=== PATIENT | female | born 1965 | race Caucasian/White ===

== ENCOUNTER 2022-09-24 06:44 | Day surgery (SDC) | payer BC ==
[~2022-09-24] VITALS: Ht 167.6 cm; Wt 88.5 kg
[~2022-09-24 06:44] MED LIST: ALBUTEROL SUL0.083 % IN; BENADRYL25 M1 OR; BUSPIRONE5 MG PO; CLARITIN10 MG OR; CYMBALTA30 MG OR; LIPITOR10 M1 PO; OMEPRAZOLE20 MG PO; OZEMPIC2 MG IJ; TRAZODONE50 MG PO
[2022-09-24 08:57] VITALS: BP 140/80
== END 2022-09-24 09:05 | disposition home or self-care (01) | DRG 951 ==
LOC: ENDO 06:44 → ORM 09:30
PROVIDERS: ATTEND Internal Medicine Gastroenterology
PROC: 0DBP8ZX Excision of Rectum, Via Natural or Artificial Opening Endoscopic, Diagnostic (ICD-10-PCS; principal; 2022-09-24)
PROC: 0DB28ZX Excision of Middle Esophagus, Via Natural or Artificial Opening Endoscopic, Diagnostic (ICD-10-PCS; 2022-09-24)
PROC: 0DB78ZX Excision of Stomach, Pylorus, Via Natural or Artificial Opening Endoscopic, Diagnostic (ICD-10-PCS; 2022-09-24)
DX: Z12.11 Encounter for screening for malignant neoplasm of colon (principal); K62.1 Rectal polyp; K57.30 Diverticulosis of large intestine without perforation or abscess without bleeding; K22.81 Esophageal polyp; K44.9 Diaphragmatic hernia without obstruction or gangrene; K29.70 Gastritis, unspecified, without bleeding; K21.9 Gastro-esophageal reflux disease without esophagitis; Z79.899 Other long term (current) drug therapy; Z86.010 Personal history of colon polyps

== ENCOUNTER 2022-12-27 21:58 | Emergency (ER) | payer BC ==
[~2022-12-27] VITALS: Ht 167.6 cm; Wt 89.0 kg
[2022-12-28] MEDS ORDERED: NAPROXEN500 MG PO (00:10)
[2022-12-28 00:42] VITALS: BP 131/75
== END 2022-12-28 00:46 | disposition home or self-care (01) | DRG 563 ==
LOC: ED 21:58
DX: S96.912A Strain of unspecified muscle and tendon at ankle and foot level, left foot, initial encounter (principal); E11.9 Type 2 diabetes mellitus without complications; Z79.85 Long-term (current) use of injectable non-insulin antidiabetic drugs; W10.9XXA Fall (on) (from) unspecified stairs and steps, initial encounter; Y92.009 Unspecified place in unspecified non-institutional (private) residence as the place of occurrence of the external cause